=== PATIENT | male | born 1955 | race Caucasian/White ===

== ENCOUNTER 2025-08-12 03:48 | Emergency (ER) | payer OTHER ==
[2025-08-12] MEDS ORDERED: Acetaminophen 500 MG TAB ONE (04:36)
== END 2025-08-12 06:08 | disposition home or self-care (01) ==
LOC: ERS 03:48
DX: M54.50 Low back pain, unspecified (principal); K59.00 Constipation, unspecified; E11.9 Type 2 diabetes mellitus without complications; I10 Essential (primary) hypertension; E78.5 Hyperlipidemia, unspecified; Z79.84 Long term (current) use of oral hypoglycemic drugs; Z79.4 Long term (current) use of insulin; Z79.899 Other long term (current) drug therapy
CPT/HCPCS: 96372; 99283